=== PATIENT | female | born 1955 | race Caucasian/White ===

== ENCOUNTER 2024-02-23 05:38 | Day surgery (SDC) | payer MEDICARE ==
[2024-02-21 10:24] LABS: BASOPHILS # (AUTO) 0.02 K/uL (0.00-0.20); BASOPHILS % (AUTO) 0.3 % (0.0-5.0); EOSINOPHILS % (AUTO) 1.7 % (0.0-8.0); HEMATOCRIT 40.2 % (36-48); IMMATURE GRANULOCYTE ABSOLUTE 0.02 K/uL (0-1); LYMPHOCYTES # (AUTO) 1.2 K/uL (1.0-4.8); LYMPHOCYTES % (AUTO) 19.3 % (21.0-51.0); MEAN CORPUSCULAR HEMOGLOBIN 30.8 pg (27.0-33.0); MEAN CORPUSCULAR HGB CONC 32.6 g/dL (32.0-36.0); MEAN CORPUSCULAR VOLUME 94.6 fL (79-99); MONOCYTES # (AUTO) 0.4 K/uL (0.1-1.0); MONOCYTES % (AUTO) 7.2 % (3.0-13.0); NEUTROPHILS # (AUTO) 4.3 K/uL (1.8-7.7); NEUTROPHILS % (AUTO) 71.2 % (40.0-77.0); PLATELET COUNT (AUTO) 272 K/uL (130-400); RED BLOOD CELL COUNT(AUTO) 4.25 MIL/uL (4.00-5.50); RED CELL DISTRIBUTION WIDTH 13.9 % (11.0-15.5)
[2024-02-21 10:35] VITALS: BP 129/53; PULSE 67; RESP 16
[2024-02-21 10:44] LABS: INR 1.01 (0.85-1.15); PROTHROMBIN TIME 10.9 SEC (9.6-11.6)
[2024-02-21 10:45] LABS: PARTIAL THROMBOPLASTIN TIME 26.2 SEC (26.3-35.5)
[2024-02-21 11:01] LABS: CREATININE 0.9 mg/dL (0.5-1.0); POTASSIUM 3.9 mmol/L (3.5-5.1)
[2024-02-23] VITALS (14 sets, daily range): BP systolic 124–153; BP diastolic 60–77; PULSE 63–109; RESP 12–18
[~2024-02-23] VITALS: Ht 162.6 cm; Wt 81.7 kg
[2024-02-23] MEDS: LACTATED RINGERS 1000ML 1,000 ML IV ONE
[~2024-02-23 05:38] MED LIST: DONE-53 PO; LEVO50CA4 PO; MEMA10TA21 PO; PANT40GR PO; ROSU5TAB43 PO
[2024-02-23] MEDS ORDERED: LIDOCAINE PF 100MG/5ML (2%) SYRINGE 5ML ONE (06:46)
[2024-02-23] MEDS ORDERED: ROCURONIUM BROMIDE 10MG/1ML 5ML VL ONE (06:47)
[2024-02-23] MEDS ORDERED: MIDAZOLAM HCL 1 MG/ML 2ML VIAL ONE (06:47)
[2024-02-23] MEDS ORDERED: PROPOFOL 10 MG/ML 20ML VIAL IV ONE (06:47)
[2024-02-23] MEDS ORDERED: FENTANYL CITRATE PF 50 MCG/1 ML 2ML VIAL ONE ×2 (06:48→08:00)
[2024-02-23] MEDS ORDERED: DEXAMETHASONE SOD PHOSPHATE 10MG/ML 1ML VIAL ONE (06:50)
[2024-02-23] MEDS ORDERED: ONDANSETRON 4MG INJ ONE ×2 (06:50)
[2024-02-23] MEDS ORDERED: PHENYLEPHRINE HCL 10 MG/ML 1ML VIAL IV ONE (06:51)
[2024-02-23] MEDS: CEFAZOLIN SODIUM 2 GM VIAL ONE (07:15)
[2024-02-23] MEDS: BUPIVACAINE/PF 0.25% 30ML VIAL IJ ONE (07:31)
[2024-02-23] MEDS ORDERED: PANT40TA54 PO (08:05)
[2024-02-23] MEDS ORDERED: ACET-2079 PO (08:23)
== END 2024-02-23 10:00 | disposition home or self-care (01) ==
LOC: DAH 05:38
PROVIDERS: ATTEND Student in an Organized Health Care Education/Training Program
DX: T84.84XA Pain due to internal orthopedic prosthetic devices, implants and grafts, initial encounter (principal); M25.561 Pain in right knee; G89.18 Other acute postprocedural pain; F03.90 Unspecified dementia, unspecified severity, without behavioral disturbance, psychotic disturbance, mood disturbance, and anxiety; M19.90 Unspecified osteoarthritis, unspecified site; K21.9 Gastro-esophageal reflux disease without esophagitis; Z79.82 Long term (current) use of aspirin; Z79.01 Long term (current) use of anticoagulants; Z79.899 Other long term (current) drug therapy; Z96.651 Presence of right artificial knee joint; Y82.8 Other medical devices associated with adverse incidents
CPT/HCPCS: 80048; 85025; 85610; 85730; 36415; 87641; 29873; J7120 ×2; A4649 ×3; J3010 ×2; J1100; J0665; J3490; J2001; J2250; J2704; J2405 ×2; J2371; J0690; A6223; A5120; A4215; A4223; A4213; A4222; A4221; A4663; A6450